=== PATIENT | male | born 1960 | race Caucasian/White ===

== ENCOUNTER → 2016-03-11 | Outpatient (REF) | payer SELFPAY | END | disposition home or self-care (01) | LOC: M LAB REF 13:08 | PROVIDERS: ATTEND Physician Assistant | DX: H60.313 Diffuse otitis externa, bilateral (principal) ==

== ENCOUNTER → 2024-04-08 | Outpatient (CLI) | payer OTHER | LOC: M RAD 10:55 | PROVIDERS: ATTEND Family Medicine | DX: I65.29 Occlusion and stenosis of unspecified carotid artery (principal) ==